=== PATIENT | female | born 1985 | race Caucasian/White ===

== ENCOUNTER 2016-09-19 18:10 | Outpatient (CLI) | payer OTHER ==
[~2016-09-19] VITALS: Ht 154.9 cm; Wt 86.3 kg
[~2016-09-19 18:10] MED LIST: FER325 PO
[2016-09-19 19:42] VITALS: Ht 154.9 cm; Wt 86.3 kg
[2016-09-19 19:50] VITALS: BP 117/89; PULSE 85; RESP 20
[2016-09-19 20:02] LABS: ADD UMIC NO; UR ASCORBIC ACID NEGATIVE (NEGATIVE); UR BILIRUBIN (Dip) NEGATIVE (NEGATIVE); UR BLOOD (Dip) NEGATIVE (NEGATIVE); UR CLARITY CLEAR (CLEAR); UR COLOR YELLOW (YELLOW); UR GLUCOSE (Dip) NEGATIVE (NEGATIVE); UR KETONES (Dip) NEGATIVE (NEGATIVE); UR LEUKOCYTE ESTERASE (Dip) NEGATIVE Leu/ul (NEGATIVE); UR NITRITE (Dip) NEGATIVE (NEGATIVE); UR SPECIFIC GRAVITY (Dip) 1.018 (1.003-1.030); UR TOTAL PROTEIN (Dip) NEGATIVE (NEGATIVE); UR UROBILINOGEN (Dip) NEGATIVE (NEGATIVE)
[2016-09-19 20:03] LABS: ADD SCAN DIFF NO
[2016-09-19 20:05] LABS: BASOPHILS % 0.3 % (0.0-2.0); MEAN CORPUSCULAR VOLUME 92.9 fl (82.0-101.0); MEAN PLATELET VOLUME 9.5 fl (7.4-10.4); RED CELL DISTRIBUTION WIDTH 14.1 % (11.5-14.5)
[2016-09-19 20:09] LABS: INR 0.95; PARTIAL THROMBOPLASTIN TIME 30.9 Sec (25.0-35.0); PROTIME 12.7 Sec (12.2-14.2)
[2016-09-19] MEDS ORDERED: PRENAT PO (20:09)
[2016-09-19 20:14] LABS: EOSINOPHILS # 0.1 10^3/ul (0.0-0.5); EOSINOPHILS % 1.3 % (0.0-7.0); HEMATOCRIT 32.8 % (37.0-47.0); LYMPHOCYTES # 1.5 10^3/ul (0.8-2.9); LYMPHOCYTES % 15.3 % (15.0-51.0); MEAN CORPUSCULAR HEMOGLOBIN 31.2 pg (29.0-33.0); MEAN CORPUSCULAR HGB CONC 33.5 g/dl (32.0-37.0); MONOCYTE # 0.6 10^3/ul (0.3-0.9); MONOCYTES % 6.5 % (0.0-11.0); NEUTROPHIL # 7.2 10^3/ul (1.6-7.5); NEUTROPHILS % 75.8 % (39.0-77.0); PLATELET COUNT 338 10^3/UL (140-415); RED BLOOD COUNT 3.53 10^6/ul (4.20-5.40); WHITE BLOOD COUNT 9.5 10^3/ul (4.8-10.8)
--- NOTE | 2016-09-19 20:15 | RADRPT ---
PROCEDURE: US OB biophysical profile. CLINICAL INDICATION: decreased movements, pelvic pain TECHNIQUE: Multiple sonographic images of the pelvis were obtained. The images were reviewed on a PACS workstation. COMPARISON: No prior studies are available for comparison. FINDINGS: There is a single viable intrauterine gestation. Cardiac activity is present with 135 beats per min [place]. There is a vertex presentation. The placenta is anterior. There is no evidence of placental abruption. There is a normal amount of amniotic fluid with an NIKOLAI = 12.4 cm. Biophysical profile: movement 2/2 tone 2/2. breathing 2/2 NIKOLAI 2/2 Total 10/23 RPTAT: AA . IMPRESSION: Normal biophysical profile. . .Noam Kemp MD, Date Time Electronically viewed and signed by .Noam Kemp MD, MD on 09/19/2016 20:15 .S/
--- NOTE | 2016-09-19 20:16 | RADRPT ---
PROCEDURE: US OB. CLINICAL INDICATION: Size and dates TECHNIQUE: Multiple sonographic images of the pelvis and gravid uterus were obtained. The images were reviewed on a PACS workstation. COMPARISON: No prior studies are available for comparison. FINDINGS: There is a single viable intrauterine gestation. Cardiac activity is present with 138 beats per min [place]. There is a vertex presentation. The placenta is anterior. There is no evidence of placental abruption. There is a normal amount of amniotic fluid with an NIKOLAI = 12.4 cm. Measurements were made in order to determine age. The results are as follows: BPD =9.3 cm HC =33.4 cm AC =35.7 cm FL =7.5 cm Estimated gestational age of approximately 38 weeks and 4 days based on ultrasound measurements. Clinical age: 39 weeks and 0 days. The estimated date of delivery is 09/29/2016, based on ultrasound measurements. The EFW = 3534 g, 67%, based on LMP age. RPTAT: AA IMPRESSION: Single viable intrauterine gestation of approximately 38 weeks and 4 days based on ultrasound measu rements. .Noam Kemp MD, MD Date Time Electronically viewed and signed by .Noam Kemp MD, MD on 09/19/2016 20:16 .S/
[2016-09-19 20:33] LABS: ALBUMIN 3.9 g/dl (3.3-4.9); ALBUMIN/GLOBULIN RATIO 1.3; BILIRUBIN,INDIRECT 0.2 mg/dl (0-1.1); BILIRUBIN,TOTAL 0.2 mg/dl (0.2-1.3); CALCIUM 8.9 mg/dl (8.4-10.2); CREATININE 0.51 mg/dl (0.44-1.00); POTASSIUM 3.7 mmol/L (3.5-5.1); TOTAL PROTEIN 6.9 g/dl (6.1-8.1)
--- NOTE | 2016-09-19 21:14 | PN ---
Triage Information Date/Time 09/19/2016 Weeks of Gestation 39 : 3 Para: 1 Diabetes: none Hypertention: none Additional information sent in from clinic or R/O PIH Objective Vital Signs Date Time Temp Pulse Resp B/P Pulse Ox O2 Delivery O2 Flow Rate FiO2 09/19/16 19:50 98.5 85 20 117/89 98 Room Air Heart Rate: 140's Heart Rate Comments FHTs R Contractions: None Results/Medications Result Diagram: 09/19/16192909/19/161929 Results 24 hrs Laboratory Tests Test 09/19/16 19:20 09/19/16 19:30 Urine Color YELLOW Urine Clarity CLEAR Urine pH 5.0 Urine Specific [place] 1.018 Urine Ketones NEGATIVE Urine Nitrite NEGATIVE Urine Bilirubin NEGATIVE Urine Urobilinogen NEGATIVE Urine Leukocyte Esterase NEGATIVE Urine Hemoglobin NEGATIVE Urine Glucose NEGATIVE Urine Total Protein NEGATIVE White Blood Count 9.5 Red Blood Count 3.53 L Hemoglobin 11.0 L Hematocrit 32.8 L Mean Corpuscular Volume 92.9 Mean Corpuscular Hemoglobin 31.2 Mean Corpuscular Hemoglobin Concent 33.5 Red Cell Distribution Width 14.1 Platelet Count 338 Mean Platelet Volume 9.5 # Neutrophils % 75.8 Lymphocytes % 15.3 Monocytes % 6.5 Eosinophils % 1.3 Basophils % 0.3 Nucleated Red Blood Cells % 0.0 Neutrophils # 7.2 Lymphocytes # 1.5 Monocytes # 0.6 Eosinophils # 0.1 Basophils # 0.0 Nucleated Red Blood Cells # 0.0 Prothrombin Time 12.7 Prothrombin Time Ratio 1.0 INR International Normalized Ratio 0.95 Activated Partial Thromboplast Time 30.9 Fibrinogen 492.0 H Sodium Level 134 L Potassium Level 3.7 Chloride Level 104 Carbon Dioxide Level 19 L Anion Gap 15 Blood Urea Nitrogen 5 L Creatinine 0.51 Glucose Level 108 Uric Acid 4.0 Calcium Level 8.9 Total Bilirubin 0.2 Direct Bilirubin 0.00 Indirect Bilirubin 0.2 Aspartate Amino Transf (AST/SGOT) 17 Alanine Aminotransferase (ALT/SGPT) 25 Alkaline Phosphatase 177 H Total Protein 6.9 Albumin 3.9 Globulin 3.00 Albumin/Globulin Ratio 1.30 Imaging Results BPP 10/23 Assessment/Plan PIH ruled out! will follow out patient NAGA MESA MD Sep 19, 2016 21:14
--- NOTE | 2016-09-19 22:45 | TRIAGE ---
OB Triage Datetime Report Generated by CPN: 09/19/2016 22:45 Datetime: 09/19/2016 19:50 Time of Arrival: 09/19/2016 18:00 EGA: 39.0 Arrived By: Ambulatory Arrived From: Dr. Guadarrama Chief Complaint: HIGH BP IN CLINIC Movement: Present Contractions: Denies/Absent Rupture of Membranes: Denies Vaginal Bleeding: None Vaginal Discharge: Denies Recent Sexual Intercouse: Denies Abdominal Trauma: Not Applicable Patient Complaints: None Time Provider Notified: 09/19/2016 19:23 Provider Notified: DR. FLORIAN Initial Plan: [facility] PANEL , BPP, EFW Datetime: 09/19/2016 19:49 Comments: ULTRASOUND AT THE BEDSDIE Datetime: 09/19/2016 19:07 Maternal Assessment Level of Consciousness: Fully Conscious Headache: Denies Blurred Vision: No Nausea/Vomiting: Denies RUQ Epigastric Pain: Denies Facial Edema: None Labor Evaluation Frequency: 0 Monitor Mode: External Duration (sec)2399: 0 (Annotations: PT DENIES UC'S ) Resting Tone [place]: Relaxed Heart Rate FHR Baseline Rate: 135 Monitor Mode: External US Variability: Moderate 6-25 bpm Accelerations: 15X15 Decelerations: None Category: Category I Comments: NST REACTIVE FOR GESTATIONAL AGE Datetime: 09/19/2016 18:58 Stage of : OB Triage Datetime: 09/19/2016 18:30 Stage of : OB Triage Assessment Type: Triage Maternal Assessment Level of Consciousness: Fully Conscious DTR's/Clonus: DTRs 2+; No Clonus Headache: Denies Blurred Vision: No Respiratory Effort: Unlabored; Regular Rhythm; Equal Expansion Breath Sounds, Left: Clear and Equal Breath Sounds, Right: Clear and Equal Nausea/Vomiting: Denies RUQ Epigastric Pain: Denies Lower Extremities Edema: Bilateral Lower Extremities Degree: 1+ Upper Extremities Edema: None Degree: None Facial Edema: None Temperature Route: Axillary Fall Risk Assessment History of Falling: (0) No Secondary Diagnosis: (0) No Ambulatory Aid: (0) Bedrest/Nurse Assist IV Therapy: (0) No Gait: (0) Normal/Bedrest/Immobile Mental Status: (0) Oriented to Own Ability Fall Score: 0 Fall Risk Score Definition: No Risk: No action required
== END 2016-09-19 21:25 | disposition home or self-care (01) ==
LOC: OBT 18:10 → L-D 18:11 → OBT 21:25
PROVIDERS: ATTEND Obstetrics & Gynecology
DX: O26.893 Other specified pregnancy related conditions, third trimester (principal); Z3A.39 39 weeks gestation of pregnancy; R03.0 Elevated blood-pressure reading, without diagnosis of hypertension
CPT/HCPCS: 76815; 76818; 80053; 81003; 84560; 85025; 85384; 85610; 85730

== ENCOUNTER 2016-09-28 09:00 | Inpatient (IN) | payer OTHER ==
[~2016-09-28] VITALS: Ht 154.9 cm; Wt 86.4 kg
[~2016-09-28 09:00] MED LIST changes: +PRENAT PO
[2016-09-28] MEDS ORDERED: IBUPROFEN 600 MG TAB PO PRN (10:30)
[2016-09-28] MEDS ORDERED: LIDOCAINE 1% (MPF) 30 ML INJ INJ PRN (10:30)
[2016-09-28] MEDS ORDERED: OXYTOCIN 30 UNITS/LR 500 ML IV PRN (10:30)
[2016-09-28] MEDS ORDERED: ACETAMINOPHEN/CODEINE #3 TAB PO PRN (10:30)
[2016-09-28] MEDS ORDERED: BUTORPHANOL 2 MG INJ IV PRN (10:30)
[2016-09-28] MEDS ORDERED: MISOPROSTOL 200 MCG TAB PR PRN (10:30)
[2016-09-28] MEDS ORDERED: OXYTOCIN 30 UNITS/LR 500 ML IV SCH ×2 (10:30)
[2016-09-28] MEDS ORDERED: METHYLERGONOVINE 0.2 MG INJ IM PRN (10:30)
[2016-09-28] MEDS ORDERED: CARBOPROST 250 MCG INJ IM PRN (10:30)
[2016-09-28 10:45] LABS: ADD SCAN DIFF NO
[2016-09-28 10:51] LABS: BASOPHILS % 0.2 % (0.0-2.0); EOSINOPHILS # 0.1 10^3/ul (0.0-0.5); EOSINOPHILS % 0.8 % (0.0-7.0); HEMATOCRIT 34.6 % (37.0-47.0); HEMOGLOBIN 11.7 g/dl (12.0-16.0); LYMPHOCYTES # 1.4 10^3/ul (0.8-2.9); LYMPHOCYTES % 14.7 % (15.0-51.0); MEAN CORPUSCULAR HEMOGLOBIN 31.5 pg (29.0-33.0); MEAN CORPUSCULAR HGB CONC 33.8 g/dl (32.0-37.0); MEAN CORPUSCULAR VOLUME 93.3 fl (82.0-101.0); MEAN PLATELET VOLUME 9.9 fl (7.4-10.4); MONOCYTE # 0.6 10^3/ul (0.3-0.9); MONOCYTES % 5.7 % (0.0-11.0); NEUTROPHIL # 7.5 10^3/ul (1.6-7.5); NEUTROPHILS % 77.9 % (39.0-77.0); PLATELET COUNT 317 10^3/UL (140-415); RED BLOOD COUNT 3.71 10^6/ul (4.20-5.40); WHITE BLOOD COUNT 9.7 10^3/ul (4.8-10.8)
[2016-09-28] MEDS: LACTATED RINGER'S 1,000 ML IV SCH ×2 (11:03→18:09)
[2016-09-28 11:08] LABS: INR 0.91; PROTIME 12.2 Sec (12.2-14.2)
[2016-09-28 11:09] LABS: PARTIAL THROMBOPLASTIN TIME 29.2 Sec (25.0-35.0)
[2016-09-28] MEDS ORDERED: DINOPROSTONE 10 MG VAG SUPP VAG ONE (11:30)
[2016-09-28] MEDS ORDERED: LACTATED RINGER'S 1,000 ML IV PRN (12:00)
--- NOTE | 2016-09-28 20:41 | HP ---
Date/Time of Note Date/Time of Note DATE: 09/28/16 TIME: 20:38 OB - History Hx of Present Free Text/Dictation Admitted for induction of labor at 40 weeks and 2 days Last Menstrual Period: Dec 21, 2015 Estimated Due Date: Sep 26, 2016 : 3 Para: 1 Spontaneous : 1 Care: Good Care Ultrasounds: Normal mid trimester US Past Family/Social History * Past Medical, Surgical, Family and Obstetric Histories reviewed from chart. Blood Type: O+ Rubella: immune RPR/VDRL: Negative GBS Status: Unknown HBsAG: Negative OB Admission Exam Physical Exam HEENT: WNL Heart: Rhythm Normal Lungs: Clear, Equal Abdomen: WNL Extremities: Normal Reflexes: Normal Cervical Dilatation: 2cm Effacement: 50% Station: -3 Membranes: Intact Heart Rate: 140's Accelerations: Accelerations Present Decelerations: No Decelerations Varibility: Marked Contractions on Admission: 6-10 Minutes Apart Last 72 hours Lab Results CBC & BMP 09/28/16 10:25 OB Assessment/Plan Reason for admission: induction of labor Other Assessment: Term gestation Induction Method: per Pitocin Protocol NAGA MESA MD Sep 28, 2016 20:41
[2016-09-29] MEDS: LACTATED RINGER'S 1,000 ML IV SCH ×3 (01:48→18:09)
[2016-09-29 08:53] VITALS: Ht 154.9 cm; Wt 86.4 kg
[2016-09-29] MEDS ORDERED: OXYTOCIN 30 UNITS/LR 500 ML IV SCH ×2 (09:00→15:00)
--- NOTE | 2016-09-29 17:12 | PN ---
Date/Time of Note Date/Time of Note DATE: 09/29/16 TIME: 17:10 OB Subjective Subjective Subjective Complaining of minimal liver pains OB Objective Objective Objective Vital signs are within normal limits General physical exam is unchanged since admission Cervical exam is 50% on 1-2 presenting part vertex at -2 station OB Assessment/Plan Reason for admission: induction of labor Other Assessment: Term gestation Induction Method: per Pitocin Protocol NAGA MESA MD Sep 29, 2016 17:12
[2016-09-30] MEDS: LACTATED RINGER'S 1,000 ML IV SCH ×4 (02:21→21:17)
[2016-09-30] MEDS ORDERED: FENTAnyl 2MCG/ML-ROPIV 0.2% 100 ML ONE (13:04)
--- NOTE | 2016-09-30 15:49 | PN ---
Date/Time of Note Date/Time of Note DATE: 09/30/16 TIME: 15:45 OB Subjective Subjective Subjective Had onset of labor pains Currently has epidural Status post spontaneous rupture of the membranes OB Objective Objective Objective Vital signs stable General physical exam is unchanged Cervical exam: Cervix is 3-4 cm dilated 40% effaced presenting part at -3 station, amniotic fluid appears to be meconium-stained OB Assessment/Plan Reason for admission: induction of labor Other Assessment: Currently in labor Other plan: We will continue Pitocin augmentation of labor Consider EFW NAGA MESA MD Sep 30, 2016 15:48
--- NOTE | 2016-09-30 16:37 | RADRPT ---
PROCEDURE: US limited OB for weight CLINICAL INDICATION: Post dates TECHNIQUE: Multiple sonographic images of the pelvis were obtained. Transabdominal imaging only w as performed. The images were reviewed on a PACS workstation. COMPARISON: 09/19/2016 FINDINGS: There is a single viable intrauterine gestation. Cardiac activity is present with 146 beats per minute. There is a cephalic presentation. Measurements were made in order to determine age. The results are as follows: BPD = 9.0 cm. HC = 33.0 cm. AC = 36.8 cm. FL = 7.7 cm. Estimated gestational age of approximately 38 weeks 4 days. The estimated date of delivery is 10/10/2016. The EFW = 3791 g. Growth percentile 56 %. The placenta is anterior grade II. There is no evidence for an abruption or placenta previa. IMPRESSION: 1. Single viable intrauterine gestation of approximately 38 weeks 4 days. 2. Estimated weight is 3791 grams with a growth percentile of 56 %. RPTAT: HJPL .Stoney Castellon MD, Date Time Electronically viewed and signed by .Stoney Castellon MD, on 09/30/2016 16:37 .L/
[2016-09-30] MEDS ORDERED: MINERAL OIL LIGHT 10 ML VIAL TOP PRN (20:00)
[2016-10-01] MEDS ORDERED: AMPICILLIN 2 GM/NS (PMX) 100 ML ONE (00:19)
[2016-10-01] MEDS ORDERED: AMPICILLIN 2 GM/NS (PMX) 100 ML IVPB ONE (00:30)
[2016-10-01] MEDS: LACTATED RINGER'S 1,000 ML IV SCH ×3 (00:39→09:41)
[2016-10-01] MEDS ORDERED: FENTAnyl 2MCG/ML-ROPIV 0.2% 100 ML ONE (00:43)
[2016-10-01] MEDS ORDERED: ONDANSETRON 4 MG INJ IV PRN (01:00)
[2016-10-01] MEDS ORDERED: FENTAnyl 2MCG/ML-ROPIV 0.2% 100 ML BAG EPI SCH (01:00)
[2016-10-01] MEDS ORDERED: DIPHENHYDRAMINE 50 MG INJ IV PRN (01:00)
[2016-10-01] MEDS ORDERED: NALOXONE (0.4 MG/ML) INJ IV PRN ×2 (01:00→05:00)
[2016-10-01] MEDS ORDERED: GENTAMICIN 120 MG/NS (PMX) 100 ML IVPB STA (02:11)
[2016-10-01] MEDS ORDERED: ACETAMINOPHEN 500 MG TAB PO STA (02:13)
[2016-10-01] MEDS ORDERED: FAMOTIDINE 20 MG INJ ONE (02:51)
[2016-10-01] MEDS ORDERED: CEFAZOLIN 1 GM INJ ONE (02:58)
[2016-10-01] MEDS ORDERED: LIDOCAINE 2%/EPI 30 ML INJ ONE (02:58)
[2016-10-01] MEDS ORDERED: OXYTOCIN 10 UNIT INJ ONE (02:59)
--- NOTE | 2016-10-01 03:25 | QN ---
Documentation Comment Patient advanced her cervical dilatation to 9cm regardless of aggressive Pitocin augmentation of the labor and adequate contractions had no further progress X4-5 hours until decision was made to proceed with with primary C.S . Patient had good awareness of nature and complications of C/S procedure including but but limited to infection and hemorrhage.and agreed to undergo C/S NAGA MESA MD Oct 01, 2016 03:25
[2016-10-01] MEDS ORDERED: CLINDAMYCIN 900 MG/D5W (PMX) 50 ML IVPB ONE (03:56)
[2016-10-01] MEDS ORDERED: CLINDAMYCIN 900 MG/D5W (PMX) 50 ML IVPB SCH ×2 (04:00→12:00)
[2016-10-01] MEDS ORDERED: DEXAMETHASONE 4 MG/ML 1 ML INJ ONE (04:16)
[2016-10-01] MEDS ORDERED: METOCLOPRAMIDE 10 MG INJ ONE (04:16)
[2016-10-01] MEDS ORDERED: MIDAZOLAM 1 MG/ML 2 ML INJ ONE (04:18)
[2016-10-01] MEDS ORDERED: morphine SULFATE/PF (10 MG/10 ML) INJ ONE (04:20)
--- NOTE | 2016-10-01 04:40 | OPR ---
Operative Report Planned Procedure Procedure date Oct 01, 2016 Procedure(s) primary C/S Performed by: NAGA MESA MD Assisting provider: SUSAN MANCERA MD Anesthesiologist: FROY GORDILLO MD Pre-procedure diagnosis term gestation arrest of dilatation and decent Anesthesia Type: epidural Procedure Description Under satisfactory anaesthesia a Pfannenstiel incision was made two fingerbreadth above and parallel to the symphysis of pubis. Incision was extended laterally to the border of the Recti muscles on either sides. Incision was carried down with sharp and blunt dissection until fascia was reached. Anterior Recti muscle fascia was incised in mid portion and incision extended laterally to the border of skin incision. Fascia was mobilized from muscle superiorly and Recti muscles were from midline using sharp and blunt dissection. Peritoneum was visualized; Avoiding bowel and bladder it was incised . Incision was extended superiorly and inferiorly. Bladder blade was placed. Posterior peritoneum covering the lower segment of the uterus and lower segment of the uterus were incised. Incision was extended laterally to the border of Round Lig. on either sides and baby was delivered from OP. position . Amniotic fluid appeared clear. Cord blood was obtained and cord had 3 vessels . Placenta was delivered spontaneously and appeared intact and complete. Intrauterine cavity was rubbed with a laparotomy sponge. Uterine incision was closed in 2 layers using running stitches of No1 Monocryl. Hemostasis appeared secure. Ovaries and Fallopian tubes were within normal limits. Announcing needle, lap sponge and instrument count to be correct abdomen was closed in layers as follows: Peritoneum and Recti muscles with running stitches of 20 Vicryl. Fascia with running stitch of No 1 PDS. Subcutaneous tissue with running stitches of 20 Chromic and skin was closed using dang. Patient tolerated the procedure well and was transferred to [facility] in good condition. Post-Procedure Post-procedure diagnosis S/P C/S Findings: Live Baby Specimen removed: Yes Specimen description placenta Complications: None Pt Condition post procedure: stable Disposition: PACU Physician Certification I, the undersigned physician, hereby certify that I have discussed the procedure described in this consent form with this patient (or the patient's legal territory account representative), including: * The risk and benefits of the procedure; * Any adverse reactions that may reasonably be expected to occur; * Any alternative efficacious methods of treatment which may be medically viable ; * The potential problems that may occur during recuperation; * Potential for blood transfusion and associated risks/benefits; and * Any research or economic interest I may have regarding this treatment. I further certify that the patient/legally responsible person was encouraged to ask question and that all questions were answered. NAGA MESA MD Oct 01, 2016 04:40
[2016-10-01] MEDS ORDERED: AMPICILLIN 2 GM/NS (PMX) 100 ML IVPB SCH ×2 (05:00→12:00)
[2016-10-01] MEDS: KETOROLAC 30 MG INJ IV PRN ×2 (05:38→17:45)
[2016-10-01] MEDS ORDERED: OXYTOCIN 30 UNITS/LR 500 ML BAG IV ONE ×2 (07:00)
[2016-10-01 08:20] VITALS: BP 136/77; PULSE 85; RESP 18
[2016-10-01] MEDS ORDERED: CARBOPROST 250 MCG INJ IM PRN (08:30)
[2016-10-01] MEDS ORDERED: NA PHOSPHATE/BIPHOS 133 ML ENEMA PR PRN (08:30)
[2016-10-01] MEDS ORDERED: MISOPROSTOL 200 MCG TAB PR PRN (08:30)
[2016-10-01] MEDS ORDERED: METHYLERGONOVINE 0.2 MG INJ IM PRN (08:30)
[2016-10-01] MEDS ORDERED: LANOLIN 7 GM TUBE TOP PRN (08:30)
[2016-10-01] MEDS ORDERED: OXYTOCIN 30 UNITS/LR 500 ML IV PRN (08:30)
[2016-10-01] MEDS: SENNA/DOCUSATE NA (8.6MG/50MG) TAB PO SCH ×2 (09:00→21:28)
[2016-10-01] MEDS: GENTAMICIN 80 MG/NS (PMX) 50 ML IVPB SCH ×2 (09:45→16:46)
[2016-10-01] MEDS: AMPICILLIN 2 GM/NS (PMX) 100 ML IVPB SCH ×3 (11:04→22:43)
[2016-10-01 11:30] VITALS: BP 116/66; PULSE 80; RESP 20
[2016-10-01] MEDS: CLINDAMYCIN 900 MG/D5W (PMX) 50 ML IVPB SCH ×3 (12:21→23:47)
[2016-10-01 16:00] VITALS: BP_SYST 101; PULSE 100; RESP 18
[2016-10-01] MEDS ORDERED: BISACODYL 10 MG SUPP PR ONE (16:30)
[2016-10-01 21:00] VITALS: BP 104/65; PULSE 88; RESP 20
[2016-10-02] VITALS: BP 103/57; PULSE 93; RESP 18
[2016-10-02] MEDS: GENTAMICIN 80 MG/NS (PMX) 50 ML IVPB SCH ×3 (00:38→15:53)
[2016-10-02] MEDS: KETOROLAC 30 MG INJ IV PRN ×2 (00:38→06:23)
[2016-10-02 04:00] VITALS: BP 96/56; PULSE 75; RESP 18
[2016-10-02] MEDS: AMPICILLIN 2 GM/NS (PMX) 100 ML IVPB SCH ×4 (04:23→22:53)
[2016-10-02] MEDS: LACTATED RINGER'S 1,000 ML IV SCH (04:23)
[2016-10-02] MEDS ORDERED: BISACODYL 10 MG SUPP PR SCH (05:30)
[2016-10-02] MEDS: CLINDAMYCIN 900 MG/D5W (PMX) 50 ML IVPB SCH ×4 (05:33→23:59)
[2016-10-02] MEDS: IBUPROFEN 800 MG TAB PO SCH ×3 (06:00→21:34)
[2016-10-02 07:57] VITALS: BP 107/57; PULSE 80; RESP 20
[2016-10-02 08:33] LABS: ADD SCAN DIFF NO
[2016-10-02 08:38] LABS: BASOPHILS % 0.1 % (0.0-2.0); EOSINOPHILS # 0.1 10^3/ul (0.0-0.5); EOSINOPHILS % 0.6 % (0.0-7.0); HEMATOCRIT 23.5 % (37.0-47.0); HEMOGLOBIN 7.6 g/dl (12.0-16.0); LYMPHOCYTES % 8.7 % (15.0-51.0); MEAN CORPUSCULAR HEMOGLOBIN 30.5 pg (29.0-33.0); MEAN CORPUSCULAR HGB CONC 32.3 g/dl (32.0-37.0); MEAN CORPUSCULAR VOLUME 94.4 fl (82.0-101.0); MEAN PLATELET VOLUME 9.8 fl (7.4-10.4); MONOCYTE # 0.6 10^3/ul (0.3-0.9); MONOCYTES % 5.1 % (0.0-11.0); PLATELET COUNT 218 10^3/UL (140-415); RED BLOOD COUNT 2.49 10^6/ul (4.20-5.40); RED CELL DISTRIBUTION WIDTH 14.5 % (11.5-14.5); WHITE BLOOD COUNT 11.8 10^3/ul (4.8-10.8)
[2016-10-02] MEDS: SENNA/DOCUSATE NA (8.6MG/50MG) TAB PO SCH ×2 (09:28→21:34)
[2016-10-02] MEDS: OXYCODONE/ACETAMINOPHEN (5/325) TAB PO PRN ×3 (09:28→22:58)
--- NOTE | 2016-10-02 16:45 | PN ---
Date/Time of Note Date/Time of Note DATE: 10/02/16 TIME: 16:41 Assessment/Plan VTE Prophylaxis VTE Prophylaxis Intervention: ambulation Lines/Catheters IV Catheter Type (from Nrsg): Peripheral IV Assessment/Plan Assessment/Plan POD # 1 S/P C/S will advance diet ambulate Subjective 24 Hr Interval Summary NO BM passing flatus Constitutional: BM, ambulates, flatus, improved, no complaints, urine output Pain Control: well controlled Exam/Review of Systems Vital Signs Vitals Vital Signs Date Time Temp Pulse Resp B/P Pulse Ox O2 Delivery O2 Flow Rate FiO2 10/02/16 07:57 97.8 80 20 107/57 Room Air Intake and Output 10/01/16 10/01/16 10/02/16 15:00 23:00 07:00 Intake Total 1525 ml 1025 ml 1000 ml Output Total 3300 ml 1900 ml 1600 ml Balance -1775 ml -875 ml -600 ml Exam Free Text/Dictation abdomen: soft bs + incision:covered Constitutional: alert, oriented, well developed Psych: nl mood/affect, no complaints Head: atraumatic, normocephalic Eyes: EOMI, nl conjunctiva, nl lids, nl sclera ENMT: mucosa pink and moist, nl external ears & nose, nl lips & teeth, nl nasal mucosa & septum Neck: non-tender, supple Respiratory: clear to auscultation, normal air movement Cardiovascular: nl pulses, regular rate and rhythm Gastrointestinal: nl liver, spleen, non-tender, soft Musculoskeletal: nl extremities to inspection, nl gait and stance Extremities: normal pulses Neurological: PRODUCTION ENGINEER TRACK II-XII intact, nl mental status, nl speech, nl strength Skin: nl turgor, rash or lesions Lymph: nl lymph nodes Results Result Diagram: 10/02/16 0811 NAGA MESA MD Oct 02, 2016 16:44
[2016-10-02 17:00] VITALS: BP_SYST 118; BP_SYST 181; BP_DIAS 78; BP_DIAS 92; PULSE 103; PULSE 80; RESP 20
[2016-10-02 20:00] VITALS: BP 113/76; PULSE 82; RESP 19
[2016-10-03] MEDS: GENTAMICIN 80 MG/NS (PMX) 50 ML IVPB SCH ×2 (00:44→08:26)
[2016-10-03 04:00] VITALS: BP 126/68; PULSE 86; RESP 19
[2016-10-03] MEDS: AMPICILLIN 2 GM/NS (PMX) 100 ML IVPB SCH ×2 (04:52→10:22)
[2016-10-03] MEDS: CLINDAMYCIN 900 MG/D5W (PMX) 50 ML IVPB SCH (05:55)
[2016-10-03] MEDS: IBUPROFEN 800 MG TAB PO SCH ×3 (05:55→21:35)
[2016-10-03] MEDS: SENNA/DOCUSATE NA (8.6MG/50MG) TAB PO SCH ×2 (08:25→21:35)
[2016-10-03 08:26] VITALS: BP 108/77; PULSE 72; RESP 18
[2016-10-03] MEDS: LACTATED RINGER'S 1,000 ML IV SCH ×4 (08:27→18:09)
[2016-10-03 08:31] LABS: ADD SCAN DIFF NO
[2016-10-03 08:40] LABS: BASOPHILS % 0.2 % (0.0-2.0); EOSINOPHILS # 0.2 10^3/ul (0.0-0.5); HEMOGLOBIN 8.5 g/dl (12.0-16.0); LYMPHOCYTES # 1.4 10^3/ul (0.8-2.9); LYMPHOCYTES % 16.3 % (15.0-51.0); MEAN CORPUSCULAR HEMOGLOBIN 30.6 pg (29.0-33.0); MEAN CORPUSCULAR HGB CONC 32.7 g/dl (32.0-37.0); MEAN CORPUSCULAR VOLUME 93.5 fl (82.0-101.0); MEAN PLATELET VOLUME 9.7 fl (7.4-10.4); MONOCYTE # 0.4 10^3/ul (0.3-0.9); MONOCYTES % 4.9 % (0.0-11.0); NEUTROPHIL # 6.5 10^3/ul (1.6-7.5); NEUTROPHILS % 75.9 % (39.0-77.0); PLATELET COUNT 286 10^3/UL (140-415); RED BLOOD COUNT 2.78 10^6/ul (4.20-5.40); RED CELL DISTRIBUTION WIDTH 14.6 % (11.5-14.5); WHITE BLOOD COUNT 8.6 10^3/ul (4.8-10.8)
[2016-10-03] MEDS: OXYCODONE/ACETAMINOPHEN (5/325) TAB PO PRN ×2 (10:21→23:16)
[2016-10-03] MEDS: CLINDAMYCIN 300 MG CAP PO SCH ×3 (14:33→23:15)
[2016-10-03 16:15] VITALS: BP 135/83; PULSE 84; RESP 17
[2016-10-03] MEDS: ACETAMINOPHEN/CODEINE #3 TAB PO PRN (17:55)
--- NOTE | 2016-10-03 18:53 | DS ---
Date/Time of Note Date/Time of Note home next day DATE: 10/03/16 TIME: 18:51 Obstetrical Discharge Record Final Diagnosis Final Diagnosis: Term delivered Other Final Diagnosis D/P C/S Section Section: Primary Primary Indication arrest of dilatation and decent Complications Augmentation: Yes Induction: Yes Condition on Discharge Physical Assessment Last Vitals: see nurses notes Voiding: Yes Bowel Movement: Yes Breast: Soft, non-tender, Filling Fundus: Firm Abdomen and Incision: soft BS + Incision: healing well Episiotomy: NA Calf Tenderness: No Patient Condition: Good NAGA MESA MD Oct 03, 2016 18:53
--- NOTE | 2016-10-03 18:56 | DS ---
Date/Time of Note Date/Time of Note Home next day DATE: 10/03/16 TIME: 18:53 Discharge Summary Admission/Discharge Info Admit Date/Time Sep 28, 2016 at 09:44 Discharge Date/Time October 04, 2016 Discharge Diagnosis Status post Patient Condition: Good Procedures Primary Hx of Present Illness 30-year-old female underwent primary section with diagnosis of arrest of dilatation and descent Hospital Course Uncomplicated Home Meds Active Scripts Ferrous Sulfate* (Ferrous Sulfate*) 325 Mg Tabec, 325 MG PO BID, #60 TAB Prov:KEVIN SAWYER PA-C 08/08/15 Reported Medications Multivit/Min/Fol Ac/Iron/Pren* ( S*) 1 Tab Tab, 1 TAB PO DAILY, TAB 09/19/16 Follow-up Plan 3 4 days in clinic for staple removal Primary Care Provider Not On Staff Doctor Time spent on discharge: < 30 minutes Pending Labs Laboratory Tests Test 10/03/16 08:05 White Blood Count 8.610^3/ul (4.8-10.8) Red Blood Count 2.7810^6/ul (4.20-5.40) Hemoglobin 8.5g/dl (12.0-16.0) Hematocrit 26.0% (37.0-47.0) Mean Corpuscular Volume 93.5fl (82.0-101.0) Mean Corpuscular Hemoglobin 30.6pg (29.0-33.0) Mean Corpuscular Hemoglobin Concent 32.7g/dl (32.0-37.0) Red Cell Distribution Width 14.6% (11.5-14.5) Platelet Count 06012^3/UL (140-415) Mean Platelet Volume 9.7fl (7.4-10.4) Neutrophils % 75.9% (39.0-77.0) Lymphocytes % 16.3% (15.0-51.0) Monocytes % 4.9% (0.0-11.0) Eosinophils % 2.0% (0.0-7.0) Basophils % 0.2% (0.0-2.0) Nucleated Red Blood Cells % 0.0/100WBC (0.0-0.0) Neutrophils # 6.510^3/ul (1.6-7.5) Lymphocytes # 1.410^3/ul (0.8-2.9) Monocytes # 0.410^3/ul (0.3-0.9) Eosinophils # 0.210^3/ul (0.0-0.5) Basophils # 0.010^3/ul (0.0-0.1) Nucleated Red Blood Cells # 0.010^3/ul (0.0-0.0) NAGA MESA MD Oct 03, 2016 18:55
--- NOTE | 2016-10-03 18:57 | PD.PPDC ---
ELECTRONIC RESOURCES LIBRARIAN Discharge Instruction Provider Information Physician Information 30-year-old female had primary Diagnosis Final Diagnosis: Status post recent Condition Patient Condition: Good Diet Diet: Resume Regular Diet Activity/Restrictions Activity: July Shower Restrictions: No Exercising No Lifting Nothing in the Vagina Return to Work or School: Dec 03, 2016 Wound/Drain Care Instructions Wound/Drain Care Instructions: Keep clean and dry Follow-up Follow-up with Physician: 3, 4, Day/Days (In clinic for staple removal) Return to clinic for MANAGER DOMESTIC Instructions: Fever greater than 101 Chills OB Instructions: Breast Tenderness Depression Surgical Instructions: Incisional Drainage Incisional Redness NAGA MESA MD Oct 03, 2016 18:57
[2016-10-03] MEDS ORDERED: IBUP800T25 PO (18:59)
[2016-10-03] MEDS ORDERED: FER325 PO (18:59)
[2016-10-03] MEDS ORDERED: Oxycodone/Acetamin (5/325) PO (18:59)
[2016-10-03] MEDS ORDERED: PRENAT PO (18:59)
[2016-10-03 20:00] VITALS: BP 124/93; PULSE 77; RESP 18
[2016-10-04 04:00] VITALS: BP 116/66; PULSE 77; RESP 18
[2016-10-04] MEDS: CLINDAMYCIN 300 MG CAP PO SCH ×2 (06:17→12:25)
[2016-10-04] MEDS: IBUPROFEN 800 MG TAB PO SCH ×2 (06:17→13:47)
[2016-10-04 08:45] VITALS: BP 124/69; PULSE 80; RESP 18
[2016-10-04] MEDS: SENNA/DOCUSATE NA (8.6MG/50MG) TAB PO SCH (08:54)
[2016-10-04] MEDS ORDERED: DIPHTH/TET/ACEL PERTUSS (ADULT) 0.5 ML VIAL IM* ONE (09:00)
[2016-10-04] MEDS ORDERED: MEASLES,MUMPS,RUBELLA VACCINE INJ SC* ONE (09:00)
[2016-10-04] MEDS: ACETAMINOPHEN/CODEINE #3 TAB PO PRN (10:13)
[2016-10-04 13:02] VITALS: BP 129/84; PULSE 71; RESP 17
== END 2016-10-04 16:00 | disposition home or self-care (01) | DRG 766 ==
LOC: L-D 09:44 → PP1 10-01 08:35
PROVIDERS: ADMIT Obstetrics & Gynecology; ATTEND Obstetrics & Gynecology
PROC: 3E033VJ Introduction of Other Hormone into Peripheral Vein, Percutaneous Approach (ICD-10-PCS; 2016-09-28)
PROC: 10D00Z1 Extraction of Products of Conception, Low, Open Approach (ICD-10-PCS; principal; 2016-10-01 03:30)
DX: O63.1 Prolonged second stage (of labor) (principal); O32.4XX0 Maternal care for high head at term, not applicable or unspecified; O62.1 Secondary uterine inertia; O77.0 Labor and delivery complicated by meconium in amniotic fluid; Z3A.40 40 weeks gestation of pregnancy; Z37.0 Single live birth
CPT/HCPCS: 62319; 76815; 85025; 85610; 85730; 86592; 86900; 86901; 87070; 87086; 87340; 88307; 90715; 99464; J0290; J0690; J1100; J1580; J1885; J2210; J2250; J2274; J2405; J2590; J2765; J3010; J7120

== ENCOUNTER 2016-10-08 18:15 | Emergency (ER) | payer OTHER ==
[~2016-10-08] VITALS: Ht 154.9 cm; Wt 84.5 kg
[~2016-10-08 18:15] MED LIST changes: +IBUP800T25 PO; +Oxycodone/Acetamin (5/325) PO
[2016-10-08 18:22] VITALS: Ht 154.9 cm; Wt 84.5 kg
--- NOTE | 2016-10-08 19:23 | ERD ---
ER Documentation Chief Complaint Date/Time DATE: 10/08/16 TIME: 19:21 Chief Complaint sent by pmd for htn, gave 10/01/16 HPI 30-year-old female who recently had a 1 week ago on October 01 comes emergency department sent in by OB for elevated blood pressure, eval for possible preeclampsia. Patient comes in after being seen this afternoon for her follow-up visit for the . She reports that she was told that she had high blood pressure and was told to go to the emergency department. She has not had any blurry vision, headaches, nausea, vomiting or abdominal pain. She denies pelvic pain or vaginal bleeding. ROS All systems reviewed and are negative except as per history of present illness. Medications Home Meds Active Scripts [Oxycodone/Acetamin ()] 1 TAB TAB No Conflict Check, 1 TAB PO Q4H Y for PAIN LEVEL 6-10, #30 0 Refills Prov:NAGA MESA MD 10/03/16 Ibuprofen* (Ibuprofen*) 800 Mg Tablet, 800 MG PO Q8, #30 TAB 0 Refills Prov:NAGA MESA MD 10/03/16 Multivit/Min/Fol Ac/Iron/Pren* ( S*) 1 Tab Tab, 1 TAB PO DAILY, #60 TAB 1 Refill Prov:NAGA MESA MD 10/03/16 Ferrous Sulfate* (Ferrous Sulfate*) 325 Mg Tabec, 325 MG PO BID, #60 TAB 1 Refill Prov:NAGA MESA MD 10/03/16 Allergies Allergies: Coded Allergies: No Known Allergy (Unverified , 07/20/13) PMhx/Soc History of Surgery: Yes (D&C 06, 13) Hx Miscellaneous Medical Probl: Yes (ovarian cysts) Hx Alcohol Use: Yes (socially) Hx Substance Use: No Hx Tobacco Use: No Smoking Status: Never smoker Physical Exam Vitals Vital Signs Date Time Temp Pulse Resp B/P Pulse Ox O2 Delivery O2 Flow Rate FiO2 10/08/16 18:22 98.3 71 18 138/94 99 Physical Exam Const: [] Head: Atraumatic Eyes: Normal Conjunctiva ENT: Normal External Ears, Nose and Mouth. Neck: Full range of motion..~ No meningismus. Resp: Clear to auscultation bilaterally Cardio: Regular rate and rhythm, no murmurs Abd: Soft, non tender, non distended. Normal bowel sounds Skin: No petechiae or rashes Back: No midline or flank tenderness Ext: No cyanosis, or edema Neur: Awake and alert Psych: Normal Mood and Affect Result Diagram: 10/08/16195610/08/161956 Results 24 hrs Laboratory Tests Test 10/08/16 19:57 White Blood Count 8.010^3/ul Red Blood Count 3.5410^6/ul Hemoglobin 10.8g/dl Hematocrit 33.1% Mean Corpuscular Volume 93.5fl Mean Corpuscular Hemoglobin 30.5pg Mean Corpuscular Hemoglobin Concent 32.6g/dl Red Cell Distribution Width 13.6% Platelet Count 04978^3/UL Mean Platelet Volume 8.5fl Neutrophils % 71.6% Lymphocytes % 17.4% Monocytes % 6.2% Eosinophils % 1.9% Basophils % 0.5% Nucleated Red Blood Cells % 0.0/100WBC Neutrophils # 5.810^3/ul Lymphocytes # 1.410^3/ul Monocytes # 0.510^3/ul Eosinophils # 0.210^3/ul Basophils # 0.010^3/ul Nucleated Red Blood Cells # 0.010^3/ul Prothrombin Time 12.5Sec Prothrombin Time Ratio 1.0 INR International Normalized Ratio 0.93 Activated Partial Thromboplast Time 37.7Sec Urine Color YELLOW Urine Clarity CLEAR Urine pH 7.0 Urine Specific [place] 1.014 Urine Ketones NEGATIVEmg/dL Urine Nitrite NEGATIVEmg/dL Urine Bilirubin NEGATIVEmg/dL Urine Urobilinogen NEGATIVEmg/dL Urine Leukocyte Esterase TRACELeu/ul Urine Microscopic RBC 20/HPF Urine Microscopic WBC 5/HPF Urine Squamous Epithelial Cells FEW/HPF Urine Hemoglobin 3+mg/dL Urine Glucose NEGATIVEmg/dL Urine Total Protein NEGATIVEmg/dl Sodium Level 144mmol/L Potassium Level 3.7mmol/L Chloride Level 103mmol/L Carbon Dioxide Level 25mmol/L Anion Gap 20 Blood Urea Nitrogen 9mg/dl Creatinine 0.70mg/dl Glucose Level 84mg/dl Calcium Level 9.2mg/dl Total Bilirubin 0.3mg/dl Direct Bilirubin 0.00mg/dl Indirect Bilirubin 0.3mg/dl Aspartate Amino Transf (AST/SGOT) 26IU/L Alanine Aminotransferase (ALT/SGPT) 34IU/L Alkaline Phosphatase 143IU/L Total Protein 8.2g/dl Albumin 4.2g/dl Globulin 4.00g/dl Albumin/Globulin Ratio 1.05 Procedures/MDM Medical decision makin-year-old female who is status post a week ago comes in for elevated blood pressure, to rule out preeclampsia. There is no evidence of help syndrome, preeclampsia. Urine is negative for proteinuria. LFTs are normal. Patient presents with elevated blood pressure, stable for discharge. Departure Diagnosis: Primary Impression: Elevated blood pressure reading Condition: Good KEVIN SAWYER PA-C Oct 08, 2016 19:23
[2016-10-08 20:09] LABS: BASOPHILS % 0.5 % (0.0-2.0); EOSINOPHILS # 0.2 10^3/ul (0.0-0.5); EOSINOPHILS % 1.9 % (0.0-7.0); HEMATOCRIT 33.1 % (37.0-47.0); HEMOGLOBIN 10.8 g/dl (12.0-16.0); LYMPHOCYTES # 1.4 10^3/ul (0.8-2.9); LYMPHOCYTES % 17.4 % (15.0-51.0); MEAN CORPUSCULAR HEMOGLOBIN 30.5 pg (29.0-33.0); MEAN CORPUSCULAR HGB CONC 32.6 g/dl (32.0-37.0); MEAN CORPUSCULAR VOLUME 93.5 fl (82.0-101.0); MEAN PLATELET VOLUME 8.5 fl (7.4-10.4); MONOCYTE # 0.5 10^3/ul (0.3-0.9); MONOCYTES % 6.2 % (0.0-11.0); NEUTROPHIL # 5.8 10^3/ul (1.6-7.5); NEUTROPHILS % 71.6 % (39.0-77.0); PLATELET COUNT 578 10^3/UL (140-415); RED BLOOD COUNT 3.54 10^6/ul (4.20-5.40); RED CELL DISTRIBUTION WIDTH 13.6 % (11.5-14.5)
[2016-10-08 20:18] LABS: ADD UMIC YES; UR ASCORBIC ACID NEGATIVE (NEGATIVE); UR BILIRUBIN (Dip) NEGATIVE (NEGATIVE); UR BLOOD (Dip) 3+ mg/dL (NEGATIVE); UR CLARITY CLEAR (CLEAR); UR COLOR YELLOW (YELLOW); UR GLUCOSE (Dip) NEGATIVE (NEGATIVE); UR KETONES (Dip) NEGATIVE (NEGATIVE); UR LEUKOCYTE ESTERASE (Dip) TRACE Leu/ul (NEGATIVE); UR NITRITE (Dip) NEGATIVE (NEGATIVE); UR RBC 20 /HPF (0-5); UR SPECIFIC GRAVITY (Dip) 1.014 (1.003-1.030); UR SQUAMOUS EPITHELIAL CELL FEW /HPF (FEW); UR TOTAL PROTEIN (Dip) NEGATIVE (NEGATIVE); UR UROBILINOGEN (Dip) NEGATIVE (NEGATIVE)
[2016-10-08 20:30] LABS: INR 0.93; PROTIME 12.5 Sec (12.2-14.2)
[2016-10-08 20:32] LABS: PARTIAL THROMBOPLASTIN TIME 37.7 Sec (25.0-35.0)
[2016-10-08 20:33] LABS: ALBUMIN 4.2 g/dl (3.3-4.9); ALBUMIN/GLOBULIN RATIO 1.05; BILIRUBIN,INDIRECT 0.3 mg/dl (0-1.1); BILIRUBIN,TOTAL 0.3 mg/dl (0.2-1.3); CALCIUM 9.2 mg/dl (8.4-10.2); CREATININE 0.7 mg/dl (0.44-1.00); POTASSIUM 3.7 mmol/L (3.5-5.1); TOTAL PROTEIN 8.2 g/dl (6.1-8.1)
[2016-10-18] MEDS ORDERED: [UNRECOGNIZED DRUG - CODE] PO (10:49)
== END 2016-10-09 02:56 | disposition home or self-care (01) ==
LOC: FTE 18:15
DX: O10.93 Unspecified pre-existing hypertension complicating the puerperium (principal)
CPT/HCPCS: 36415; 80053; 81001; 85025; 85610; 85730; Z7502; 99283

== ENCOUNTER 2016-10-16 22:19 | Inpatient (IN) | END 2016-10-18 15:55 | disposition home or self-care (01) | DRG 776 | DX: O85 Puerperal sepsis (principal); K52.9 Noninfective gastroenteritis and colitis, unspecified; O90.81 Anemia of the puerperium ==